=== PATIENT | male | born 1960 | race Caucasian/White ===

== ENCOUNTER 2021-06-27 00:33 | Day surgery (SDC) | payer OTHER, SELFPAY ==
[2021-06-13 11:25] VITALS: BMI 29.7
[2021-06-27 06:55] VITALS: BP 140/87; RESP 20; TEMP 35.9; O2SAT 99
[2021-06-27] MEDS: LACTATED RINGERS 1,000 ML 150 ML IV CONT (07:09)
--- NOTE | 2021-06-27 07:40 | P.PNAN_ITS ---
Anes - Initial Pre Proc Eval Procedure: Operation Date: 06/27/21 08:00 Proposed Procedures p Screening Colonoscopy - Jose Reese MD Date/Time: 06/27/21 07:40 Surgeon: Jose Reese MD Pre Op Diagnosis: neoplasm screening Patient Data Age: 61 Gender: M Height: 1.85 m Weight: 102.2 kg Last Vital Signs Temp 35.9 C L 06/27/21 06:55 Resp 20 06/27/21 06:55 BP 140/87 06/27/21 06:55 Pulse Ox 99 06/27/21 06:55 Allergies Allergy/AdvReac Type Severity Reaction Status Date / Time oxycodone Allergy Severe Hypotension Verified 06/27/21 07:11 ciprofloxacin Allergy Unknown Unknown Verified 06/27/21 06:52 Home Medications Medication Instructions Recorded Confirmed Type lisinopril 10 mg tablet See Rx Instructions .ROUTE 10/25/20 06/13/21 Rx .COMPLEX #90 tablet hntrgdwjptop-tshmufsh-cbhscx tablet 1 tablet PO DAILY 12/13/20 06/13/21 History Patient hx anesthesia problems: none Family hx anesthesia problems: none Results Review: All pre-operative results and documents have been reviewed as part of the pre-operative evaluation. [facility] Past Medical History Medical History (Updated 06/27/21 @ 07:40 by Keith Eddy MD) Essential (primary) hypertension Globus sensation Obesity (BMI 30.0-34.9) Surgical History Surgical History History of right hip replacement 2016 Family History Family History Mother Family history of thyroid disease Family history of Alzheimer's disease Father Family history of lung cancer Social History Social History Smoking status: Never smoker Alcohol intake: current Drinks per week: 2 Alcohol use details: wine Living arrangements: with family Gender identity (if verbalized by the patient): Male Sexual Orientation (if Verbalized by the Patient): Straight or Heterosexual Spiritual care concerns: No Anes - Eval Final PreProcedure Day of Procedure 06/27/21 07:40 Patient weight: overweight Heart: regular rate and rhythm Lungs: clear to auscultation Airway: Mallampati scale class II Neurological: alert and oriented Last oral intake: >/= 8 hours ASA classification: II Emergent: no Anesthetic plan: proceed Anesthesia type and monitoring: general GIVS and standard monitoring Results Review: All pre-operative results and documents have been reviewed as part of the pre-operative evaluation. Informed Consent: The patient's anesthetic plan and its attendant risks and benefits were discussed with the patient/family/POA. Questions were solicited and answers provided to the satisfaction of the patient/family/POA.
--- NOTE | 2021-06-27 08:01 | WPDGICN ---
Assessment and Plan Assessment and plan (1) Colon cancer screening: Code(s): Z12.11 - Encounter for screening for malignant neoplasm of colon Status: Acute Assessment and Plan: Patient presents for screening colonoscopy. Appears to be at average risk for colon polyps. Further recommendations will be given after endoscopy. GI Consult Note Consult date/time: 06/27/21 08:01 HPI: Hernesto Moran is a 61 year old male Presents for screening colonoscopy. It has been 10 years since last exam. Patient reports his current weight appetite bowel movements are normal. He denies abdominal pain. He has had no bleeding. Family history is noncontributory. Review of Systems Review of Systems: All systems reviewed & are unremarkable except as noted in HPI and below PMFSH Past Medical History Medical History (Updated 06/27/21 @ 07:40 by Keith Eddy MD) Essential (primary) hypertension Globus sensation Obesity (BMI 30.0-34.9) Surgical History Surgical History History of right hip replacement 2015 Family History Family History Mother Family history of thyroid disease Family history of Alzheimer's disease Father Family history of lung cancer Social History Social History Smoking status: Never smoker Alcohol intake: current Drinks per week: 2 Alcohol use details: wine Living arrangements: with family Gender identity (if verbalized by the patient): Male Sexual Orientation (if Verbalized by the Patient): Straight or Heterosexual Spiritual care concerns: No Meds Home Medications and Allergies Home Medications Medication Instructions Recorded Confirmed Type lisinopril 10 mg tablet See Rx Instructions .ROUTE 10/25/20 06/13/21 Rx .COMPLEX #90 tablet iocswtzkzffa-wuqqqddi-roibci tablet 1 tablet PO DAILY 12/13/20 06/13/21 History Allergies Allergy/AdvReac Type Severity Reaction Status Date / Time oxycodone Allergy Severe Hypotension Verified 06/27/21 07:11 ciprofloxacin Allergy Unknown Unknown Verified 06/27/21 06:52 Vital Signs Vital Signs - 24 hr 06/27/21 06:55 Temperature 96.7 F L Respiratory Rate 20 Blood Pressure 140/87 Pulse Oximetry 99 Exam Narrative: Physical exam reveals patient to be alert. Vital signs stable. HEENT exam is unremarkable. Patient is anicteric. Lungs are clear to auscultation and percussion. Heart is without murmur or extra sounds. Abdominal exam bowel sounds are present soft nontender with no hepatosplenomegaly. Digital external rectal exam is normal.
[2021-06-27 08:24] VITALS: BP 116/82; PULSE 68; RESP 18; O2SAT 97
[2021-06-27 08:34] VITALS: BP 125/81; PULSE 62; RESP 17; O2SAT 100
[2021-06-27 08:44] VITALS: BP 108/74; PULSE 70; RESP 26; O2SAT 100
== END 2021-06-27 08:49 | disposition home or self-care (01) ==
PROVIDERS: PCP Family Medicine; Visit Provider Internal Medicine Gastroenterology
PROC: 0DJD8ZZ Inspection of Lower Intestinal Tract, Via Natural or Artificial Opening Endoscopic (ICD-10-PCS; CPT 45378; principal; 2021-06-27 08:00)
DX: Z12.11 Encounter for screening for malignant neoplasm of colon (principal); K64.8 Other hemorrhoids; I10 Essential (primary) hypertension
CPT/HCPCS: 45378; J2704; J7120

== ENCOUNTER 2022-02-24 12:28 | Outpatient (CLI) | payer OTHER, SELFPAY ==
--- NOTE | 2022-02-24 14:48 | ECG_ITS ---
Measurements Intervals [place] Rate: 66 P: 46 [place]: 160 QRS: 78 QRSD: 113 T: 43 QT: 394 QTc: 413 Interpretive Statements SINUS RHYTHM MODERATE INTRAVENTRICULAR CONDUCTION DELAY [110+ ms QRS DURATION] NO PREVIOUS ECG AVAILABLE FOR COMPARISON ABNORMAL EKG Electronically Signed On 02-25-2022 13:41:48 CDT by Harrison Crews M.D.
== END 2022-02-24 12:29 | disposition home or self-care (01) ==
PROVIDERS: PCP Family Medicine; Visit Provider Surgery
DX: K40.90 Unilateral inguinal hernia, without obstruction or gangrene, not specified as recurrent (principal); I10 Essential (primary) hypertension; Z01.818 Encounter for other preprocedural examination; I45.9 Conduction disorder, unspecified
CPT/HCPCS: 36415; 86850; 86900; 86901; 93005

== ENCOUNTER 2022-03-01 01:16 | Day surgery (SDC) | payer OTHER, SELFPAY ==
[2022-02-22 14:37] VITALS: BMI 27.7
--- NOTE | 2022-02-22 14:45 | PC.NURSE ---
Report to the Outpatient Waiting Room, entrance under the green pavilion located off [facility], at time 8:00 on date 03/01/22. OR Time: 10:00. - You and your visitor will be asked a series of questions to screen for COVID 19 for your protection. - Only one visitor is allowed at this time. - The patient visitor is requested to leave or wait in car when not with patient. - A mask is required within the hospital. Patients may have clear liquids (water, carbonated beverages, clear teas, apple juice) until 3 hours prior to surgery (7:00) with a maximum of 20 ounces. - No food from midnight until time of surgery Take the following medications with a SIP of water the morning of surgery: NONE Medications to discontinue per physician: VITAMINS Date to take last dose: 02/25/22 Please no make-up, nail upper sorbian, hairspray, perfume, deodorant, or body powder the day of surgery. No jewelry (including any body piercings) or valuables the day of surgery, leave them at home. Please take a shower or bath the night before, or the morning of, surgery with an antibacterial soap. Wear comfortable, loose fitting clothing. HIBICLENS SHOWER - Jewelry must be removed prior to entering the operating room. Rings and piercings that are not removed may be cut off. - The hospital will not accept responsibility for valuables. - Please leave all valuables, including medications, at home the day of surgery. If you are going home after surgery, a licensed bus van driver must drive you home. - NO public transportation without another adult. - We recommend that an adult stay with you for 24 hours following discharge. - We also recommend that you do not drive, make important decision, drink alcoholic beverages, or take any drugs that were not prescribed by your health care provider for at least 24 hours after your discharge time. Follow any additional instructions given to you from your surgeon. If you or anyone in your household have experienced Covid symptoms in the past week, please notify your surgeon or the nurse liaison at the phone number below for possible testing. Telephone instructions given to PT - [address] and asked if any additional questions and then verbalized understanding. Patient advised to call surgeon office or pre surgery nurse liaison [phone] if any additional questions.
--- NOTE | 2022-02-28 09:45 | P.PNAN_ITS ---
Anes - Initial Pre Proc Eval Procedure: Operation Date: 03/01/22 10:00 Proposed Procedures p Laparoscopic Left Inguinal Hernia Repair with Mesh, DaVinci Assisted - Silver Vega DO Date/Time: 02/28/22 09:45 Surgeon: Silver Vega DO Pre Op Diagnosis: Lt Ing Hernia Patient Data Age: 61 Gender: M Height: 1.85 m Weight: 95.25 kg Allergies Allergy/AdvReac Type Severity Reaction Status Date / Time oxycodone Allergy Severe Hypotension Verified 03/01/22 08:17 ciprofloxacin Allergy Unknown Other Verified 03/01/22 08:17 Home Medications Medication Instructions Recorded Confirmed Type dyojkjycvdhh-atsalsda-vbropi tablet 1 tablet PO DAILY 12/13/20 03/01/22 History lisinopril 10 mg tablet See Rx Instructions .Route 11/10/21 03/01/22 Rx .COMPLEX #90 tabs ibuprofen 800 mg tablet 800 mg PO Q8H PRN pain #15 tabs 03/01/22 Rx Patient hx anesthesia problems: none Family hx anesthesia problems: none Results Review: All pre-operative results and documents have been reviewed as part of the pre- operative evaluation. [facility] Past Medical History Medical History Basal cell carcinoma of skin Basal cell carcinoma, face Essential (primary) hypertension Globus sensation Obesity (BMI 30.0-34.9) Surgical History Surgical History History of right hip replacement 2015 Family History Family History Mother Family history of thyroid disease Family history of Alzheimer's disease Father , age 65 Family history of lung cancer Social History Social History Smoking status: Never smoker Alcohol intake: never Drinks per week: 2 Alcohol use details: wine Substance use: never Substance use type: does not use 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 Gender identity (if verbalized by the patient): Male Sexual Orientation (if Verbalized by the Patient): Straight or Heterosexual Spiritual care concerns: No Anes - Eval Final PreProcedure Day of Procedure 06/14/22 09:45 Patient weight: overweight Heart: regular rate and rhythm Lungs: clear to auscultation Airway: Mallampati scale class II Neurological: alert and oriented Last oral intake: >/= 8 hours ASA classification: II Emergent: no Anesthetic plan: proceed Anesthesia type and monitoring: general ETT and standard monitoring Results Review: All pre-operative results and documents have been reviewed as part of the pre- operative evaluation. Informed Consent: The patient's anesthetic plan and its attendant risks and benefits were discussed with the patient/family/POA. Questions were solicited and answers provided to the satisfaction of the patient/family/POA.
[2022-03-01] VITALS (13 sets, daily range): BP systolic 101–119; BP diastolic 69–83; PULSE 39–78; RESP 12–16; TEMP 36.4–36.8; O2SAT 100; BMI 26.2
[2022-03-01] MEDS: ACETAMINOPHEN 500 MG TABLET 1000 MG PO (09:10)
[2022-03-01] MEDS: LACTATED RINGERS 1,000 ML 30 ML IV CONT ×3 (09:13→13:41)
[2022-03-01] MEDS: KETOROLAC 15 MG/ML VIAL (*BKC) IV PUSH (09:14)
--- NOTE | 2022-03-01 09:22 | WPDHPUPDATE1 ---
History and Physical Update Update Date/Time: 03/01/22 09:22 History and Physical has been reviewed, including an updated exam of the patient. There are NO changes in the patient's condition. Risks, benefits, and alternatives have been discussed and questions answered. Patient agrees to proceed with procedure.
[2022-03-01] MEDS: ceFAZolin 2 GM/D5W 50 ML 2 GM/50 ML BAG IVPB (09:43)
--- NOTE | 2022-03-01 10:55 | W.PM.PROC2 ---
Procedure Note - Detailed Date of Procedure 03/01/22 Pre-op Diagnosis Left Inguinal Hernia Post-op Diagnosis Same (Indirect left inguinal hernia) Procedure Performed Laparoscopic left inguinal hernia repair with mesh, da Paul assisted Surgeon Silver Vega DO Anesthesia General and Local (0.5% bupivacaine with epinephrine) Indications This is a 61-year-old man who presented with left groin pain and a bulge that he noticed about 2 months ago. He was found to have a reducible left inguinal hernia on physical exam. There was no evidence of a right inguinal hernia on exam. Discussions were made with the patient about treatment options and decision was made to proceed with robotic assisted laparoscopic left inguinal hernia repair with mesh. Findings Laparoscopic left inguinal hernia repair was performed. Upon inspection laparoscopically, the patient was found to have a moderate-sized indirect left inguinal hernia. There was no evidence of right inguinal hernia. A robotic transabdominal preperitoneal approach was utilized. Once a wide enough preperitoneal pocket was created, a large left Bard 3DMax mid mesh was placed overlying the entire left myopectineal orifice. No specimens were obtained for pathology. Description of Procedure Procedure as well as risks, benefits, and alternatives were discussed with the patient. Written consent was obtained and placed in chart prior to procedure. Patient was brought back to surgical suite. He was placed supine on operating table. Time-out was done to confirm patient and procedure. He was then intubated by Anesthesia Department. His abdomen was prepped and draped in sterile fashion using chlorhexidine prep. 0.5% bupivacaine with epinephrine was infiltrated at each location for incision. An 8 mm incision was made in the left lateral abdomen, and a 5 mm Optiview trocar was advanced through the abdominal layers under direct visualization. Once inside the abdominal cavity, carbon dioxide insufflation was used to create a pneumoperitoneum. A camera was inserted and the abdominal cavity was inspected. The patient was placed in slight Trendelenburg position. An 8 millimeter incision was made on the right lateral abdomen and an 8 millimeter trocar was inserted under direct visualization. Another 8 millimeter incision was made just superior to the umbilicus and an 8 millimeter trocar was inserted under direct visualization. The 5 mm port was then removed and this was replaced with another 8 mm robotic port. The robotic arms were brought up to the patient's bedside and secured to the ports. The camera and instruments were inserted. I then moved over to the robotic console and took control of the camera and instruments. After careful inspection of the abdominal cavity, I began scoring the peritoneum along the left lower quadrant using scissors with electrocautery. The preperitoneal plane was entered and this was carefully dissected caudally along the inferior epigastric vessels. Careful dissection with scissors with electrocautery and blunt dissection was used to continue this dissection. I dissected far enough laterally to allow for mesh placement, and also dissected medially to identify the pubic arch and Rober's ligament. The hernia sac was identified and carefully dissected posteriorly. The cord contents were also identified and the peritoneum was carefully dissected far enough posteriorly to allow for mesh placement. Once an adequate pocket was created, I then placed the mesh within the preperitoneal pocket and carefully unfolded it. The mesh was centered on the hernia defect with adequate overlap circumferentially. The inferior edge of the mesh was inspected to ensure that it was far enough away from the peritoneal edge. The mesh appeared in proper position overlying the entire myopectineal orifice. The mesh was secured using 3-0 Vicryl simple interrupted sutures in Rober's ligament, the superior medial edge,
--- NOTE | 2022-03-01 11:54 | SUR.PHASEI ---
PT AWAKE AND ALERT. DENIES PAIN OR NAUSEA. RESTING QUIETLY
[2022-03-01] MEDS: ONDANSETRON INJ 4 MG/2 ML VIAL IV PUSH (12:46)
[2022-03-01] MEDS: HALOPERIDOL LACTATE 5 MG/ML VIAL 1 MG IV PUSH (13:35)
[2022-03-01] MEDS: SCOPOLAMINE 1.5 MG PATCH TRANSDERM (13:36)
--- NOTE | 2022-03-01 14:30 | SUR.PHASEII ---
pt had two episodes of vomiting after the scop patch and haldol. this nurse called dr souza and he verbal ordered Benadryl 25 mg.
[2022-03-01] MEDS: diphenhydrAMINE HCl INJ 50 MG/ML VIAL 25 MG IV PUSH (14:40)
== END 2022-03-01 15:39 | disposition home or self-care (01) ==
PROVIDERS: PCP Family Medicine; Visit Provider Surgery
PROC: 8E0Y4CZ Robotic Assisted Procedure of Lower Extremity, Percutaneous Endoscopic Approach (ICD-10-PCS; CPT 49650; principal; 2022-03-01 10:00)
DX: K40.90 Unilateral inguinal hernia, without obstruction or gangrene, not specified as recurrent (principal); I10 Essential (primary) hypertension
CPT/HCPCS: 49650; S2900; 36415; 86850; 86900; 86901; 93005; A9270; C1781; J0690; J1100; J1170; J1200; J1630; J1885; J2250; J2405; J2704; J2710; J7120

== ENCOUNTER 2022-12-16 23:38 | Emergency (ER) | payer OTHER, SELFPAY ==
--- NOTE | ~2022-12-16 | CT_ITS ---
EXAMINATION: CT abdomen pelvis wo con DATE: 12/17/2022 01:35 INDICATION: Hematuria. Left flank pain. Nausea and vomiting. TECHNIQUE: Computed tomography (CT) of the abdomen and pelvis was performed without intravenous contr ast. Automated exposure control and iterative reconstruction technique were employed. The dose-length product was 938.19 mGy-cm. COMPARISON: CT abdomen and pelvis 03/23/2015 FINDINGS: The visualized portions of lung bases demonstrate mild atelectasis. There is a 3 mm nodule in right lower lobe, likely benign. There is mild scarring in paraspinal right lower lobe. No pleural effusion. The heart size is normal. No pericardial effusion. The liver, gallbladder, spleen, pancrea s, and adrenal glands are normal. There is a 3 mm stone in right kidney. There is a peripelvic cysts in left kidney measuring up to 2.6 cm. There is mild left hydronephrosis and hydroureter. There is a 5 mm stone in proximal left ureter. There is a left inguinal hernia containing fat. There are no dila tommie loops of bowel. The appendix is not visualized. There are no pathologically enlarged lymph nodes. There is no free intraperitoneal fluid. There is a total right hip arthroplasty. There is osteonecro sis of left femoral head. There is mild lumbar spondylosis. IMPRESSION: 1. 5 mm stone in proximal left ureter with mild left hydronephrosis and proximal hydroureter. 2. 3 mm nonobstructing right kidney stone. Reviewed, dictated and finalized at location A. IMPRESSION: 1. 5 mm stone in proximal left ureter with mild left hydronephrosis and proxima l hydroureter. 2. 3 mm nonobstructing right kidney stone.
[2022-12-16 23:47] VITALS: BP 127/79; PULSE 55; RESP 20; TEMP 36.2; O2SAT 97
[2022-12-16 23:53] LABS: Basophils Absolute Auto 0.1 K/mm3 (0.0-0.1); Basophils Percent Auto 0.8 % (0.2-1.2); Eosinophils Absolute Auto 0.7 K/mm3 (0-0.3); Eosinophils Percent Auto 7.6 % (0-4.4); Hematocrit 45.8 % (42.0-52.0); Immature Granulocyte Absolute 0.02 K/mm3 (0.00-0.031); Immature Granulocyte Percent A 0.2 % (0-0.5); Lymphocytes Absolute Auto 3.12 K/mm3 (0.9-3.2); Lymphocytes Percent Auto 35.5 % (18.3-44.2); Mean Corpuscular HGB Conc 32.8 g/dl (32-36); Mean Corpuscular Hemoglobin 32.2 pg (26-34); Mean Corpuscular Volume 98.3 fl (80-100); Mean Platelet Volume 9.3 fl (7.4-10.4); Monocytes Absolute Auto 0.6 K/mm3 (0.1-0.6); Monocytes Percent Auto 7.3 % (2.6-8.5); Neutrophils Absolute Auto 4.3 K/mm3 (1.3-6.7); Neutrophils Percent Auto 48.6 % (45.5-73.1); Platelet Count Result 183 k/mm3 (150-375); Red Blood Count 4.66 M/mm3 (4.6-6.20); Red Cell Distribution Width 13.2 % (11.5-14.5); White Blood Count 8.8 K/mm3 (4.5-10.0)
[2022-12-17] VITALS (8 sets, daily range): BP systolic 113–131; BP diastolic 76–87; PULSE 54–61; RESP 12–15; TEMP 36.8; O2SAT 96–99
[2022-12-17 00:05] LABS: Alanine Aminotransferase 27 U/L (6-50); Albumin Level 4.5 g/dL (3.5-5.1); Alkaline Phosphatase 58 U/L (38-126); Anion Gap 5 mmol/L (8-16); Aspartate Amino Transferase 29 U/L (17-59); Bilirubin,Total 0.4 mg/dL (0.2-1.3); Blood Urea Nitrogen 27 mg/dL (9-20); Calcium 9.3 mg/dL (8.4-10.2); Carbon Dioxide 32 mmol/L (22-30); Chloride 102 mmol/L (98-107); Estimated CRCL calculation 60 ml/min; Estimated Glomerular Filt Rate 56; Glucose 146 mg/dL (65-110); Sodium 139 mmol/L (137-145)
[2022-12-17 00:20] LABS: Appearance Urine Clear (Clear); Bacteria Urine None Seen /hpf; Bilirubin Urine Negative (Negative); Blood Urine 3+ (Negative); Color Urine Yellow (Yellow); Glucose Urine UA Negative (Negative); Ketones Urine Trace mg/dL (Negative); Leukocyte Esterase Ur Negative LEU/UL (Negative); Nitrate Urine Negative (Negative); Non Pathogenic Casts 0-2; Protein Urine Negative (Negative); RBC Urine 21-50 /hpf (0-2); Specific Grav Ur 1.022 (1.001-1.035); Squamous Epithelial Cell Urine None seen /hpf (Few); Urobilinogen Urine 0.2 mg/dL (<2.0); WBC Urine 0-5 /hpf; pH Urine 5.5 (5.0-9.0)
[2022-12-17 00:58] LABS: Add Urine Microscopic? YES
[2022-12-17] MEDS: fentaNYL CITRATE INJ (*CRX) 100 MCG/2 ML VIAL 50 MCG IV PUSH ×2 (01:19→02:49)
[2022-12-17] MEDS: ONDANSETRON INJ 4 MG/2 ML VIAL IV PUSH (01:19)
--- NOTE | 2022-12-17 01:27 | ED.GENADULT ---
HPI - General Adult General Chief complaint: Urogenital-Male Stated complaint: kidney stone Time Seen by Provider: 12/16/22 23:50 History of Present Illness HPI narrative: 62-year-old male presented to the emergency department for evaluation of left flank pain with associated vomiting. Patient states over the last week he has had some intermittent left-sided lower back pain. Patient reports the pain began to worsen last night and then acutely worsened just prior to arrival. Patient did have episode of emesis with this. Patient does have a prior history of kidney stones and had had prior follow-up with urology. Patient's most recent kidney stone was approximately 4 years ago. Patient did make some dietary changes. Patient states he has never had to have lithotripsy to remove the stones and has passed the stones on his own. Patient denies any chest pain shortness of breath or fevers. Related Data Home Medications Medication Instructions Recorded Confirmed fgczkfsmtvyt-knavjgfe-npkazy tablet 1 tablet PO DAILY 12/13/20 03/14/22 Allergies Allergy/AdvReac Type Severity Reaction Status Date / Time ciprofloxacin Allergy Unknown Other Verified 10/02/22 10:34 hydrocodone AdvReac Intermediate Hypotension Verified 12/21/22 16:04 Review of Systems Review of Systems: All systems reviewed & are unremarkable except as noted in HPI and below PMFSH Past Medical History Medical History Basal cell carcinoma of skin Basal cell carcinoma, face Essential (primary) hypertension Globus sensation Obesity (BMI 30.0-34.9) Surgical History Surgical History H/O left inguinal hernia repair History of right hip replacement 2015 Family History Family History Mother Family history of thyroid disease Family history of Alzheimer's disease Father , age 65 Family history of lung cancer Social History Social History (Updated 10/02/22 @ 10:35 by Cheri Rawls MA) Smoking status: Never smoker Alcohol intake: never Drinks per week: 2 Alcohol use details: wine Substance use: never Substance use type: does not use Lack of Transportation: No Lack of Food: Never True Current Housing: I Have Housing Concerned About Future Housing: No Difficulty Paying Gas/Electric Bills: No Difficulty Paying for Meds: No Currently Unemployed: No Education: Master's Degree or Higher Difficulty w/ Childcare or Family Care: No Living arrangements: with family Occupation/Education: retired 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 EYES: PERRLA/EOMI, conjunctivae clear. NOSE: Normal no drainage NECK: Supple. No adenopathy, no masses. RESPIRATORY: Airway patent, respirations nonlabored. Clear to auscultation bilaterally, no rales, rhonchi, wheezing. CARDIOVASCULAR: Regular rate and rhythm without murmurs rubs or gallops. ABDOMINAL: Soft, nontender, nondistended, normal bowel sounds MUSCULOSKELETAL: Moves all extremities. Strength/ROM intact, No edema, No calf tenderness. NEURO: Alert. Cranial nerves II through XII intact. Grossly intact SKIN: Warm, dry. Normal Color Course Course Emergency Course: 62-year-old male presenting to the ED for evaluation of left flank pain. Patient did have hematuria on his UA with no evidence of an infection. CT scan was ordered to evaluate for ureteral calculi. I did show a kidney stone. Patient and family were updated on the pulmonary results of the scan. Patient is resting comfortably. Awaiting read by radiolog
[2022-12-17] MEDS: TAMSULOSIN HCL 0.4 MG CAPSULE PO (02:12)
[2022-12-17] MEDS: KETOROLAC 15 MG/ML VIAL (*BKC) IV PUSH (06:23)
== END 2022-12-17 06:31 | disposition home or self-care (01) ==
PROVIDERS: Emergency Provider Emergency Medicine; PCP Family Medicine
DX: N20.1 Calculus of ureter (principal); I10 Essential (primary) hypertension; Z85.828 Personal history of other malignant neoplasm of skin
CPT/HCPCS: 36415; 74176; 80053; 81001; 85025; 96374; 96375; 96376; 99284; A9270; J1885; J2405; J3010

== ENCOUNTER 2022-12-20 09:21 | Emergency (ER) | payer OTHER, SELFPAY ==
--- NOTE | ~2022-12-20 | XR_ITS ---
EXAMINATION: XR abdomen/kub 1V DATE: 12/20/2022 10:06 INDICATION: Left ureteral stone. TECHNIQUE: A supine view of the abdomen on 2 radiographs was obtained. COMPARISON: CT abdomen and pelvis 12/20/2022 FINDINGS: There are no dilated loops of bowel. There is a total right hip arthroplasty in near-anatom ic alignment. IMPRESSION: 1. No visible urolithiasis. Reviewed, dictated and finalized at location A. IMPRESSION: 1. No visible urolithiasis.
--- NOTE | ~2022-12-20 | CT_ITS ---
EXAMINATION: CT abdomen pelvis wo con DATE: 12/20/2022 09:47 INDICATION: Left ureteral stone. TECHNIQUE: Computed tomography (CT) of the abdomen and pelvis was performed without intravenous contr ast. Automated exposure control and iterative reconstruction technique were employed. The dose-length product was 300.85 mGy-cm. COMPARISON: CT abdomen and pelvis 12/17/2022 FINDINGS: The visualized portions of the lung bases demonstrate mild atelectasis. There is mild scarr ing in paraspinal right lower lobe. No pleural effusion. The heart size is normal. No pericardial eff usion. The liver, gallbladder, spleen, pancreas, and adrenal glands are normal. There is a 2 mm stone in right kidney. There is a 1 mm stone in left kidney. There are peripelvic cysts in left kidney missael suring up to 3.5 cm. There is mild left hydronephrosis and hydroureter. There is a 5 mm stone in dist al left ureter. The prostate is mildly enlarged. There is a left inguinal hernia containing fat. Ther e are no dilated loops of bowel. The appendix is normal. There are no pathologically enlarged lymph n odes. There is no free intraperitoneal fluid. There is a total right hip arthroplasty. There is mild thoracic and lumbar spondylosis. IMPRESSION: 1. 5 mm stone in distal left ureter with mild left hydronephrosis and proximal hydroureter. 2. Small bilateral nonobstructing kidney stones. Reviewed, dictated and finalized at location A.
[2022-12-20 09:30] VITALS: O2SAT 99
[2022-12-20 09:32] VITALS: BP 141/94; PULSE 60; RESP 126; TEMP 36.8; O2SAT 100
--- NOTE | 2022-12-20 09:33 | ED.MALEGU ---
HPI - Male Genitourinary General Chief complaint: Urogenital-Male Stated complaint: kidney stone Time Seen by Provider: 12/20/22 09:27 History of Present Illness HPI Narrative: Pt presents with worsening left flank pain this morning. Pt diagnosed with 5 mm kidney stone 3 days ago. Pt on tramadol, flomax and zofran but pain is getting worse. Pt denies fever, dysuria or frequency. Pt has history of kidney stones in past and says morphine has worked well for pain with others. Related Data Home Medications Medication Instructions Recorded Confirmed jjijzhqrkuql-kripegxb-qegktt tablet 1 tablet PO DAILY 12/13/20 03/14/22 Allergies Allergy/AdvReac Type Severity Reaction Status Date / Time oxycodone Allergy Severe Hypotension Verified 10/02/22 10:34 ciprofloxacin Allergy Unknown Other Verified 10/02/22 10:34 Review of Systems Review of Systems: All systems reviewed & are unremarkable except as noted in HPI and below PMFSH Past Medical History Medical History Basal cell carcinoma of skin Basal cell carcinoma, face Essential (primary) hypertension Globus sensation Obesity (BMI 30.0-34.9) Surgical History Surgical History H/O left inguinal hernia repair History of right hip replacement 2015 Family History Family History Mother Family history of thyroid disease Family history of Alzheimer's disease Father , age 65 Family history of lung cancer Social History Social History (Updated 10/02/22 @ 10:35 by Cheri Rawls MA) Smoking status: Never smoker Alcohol intake: never Drinks per week: 2 Alcohol use details: wine Substance use: never Substance use type: does not use Lack of Transportation: No Lack of Food: Never True Current Housing: I Have Housing Concerned About Future Housing: No Difficulty Paying Gas/Electric Bills: No Difficulty Paying for Meds: No Currently Unemployed: No Education: Master's Degree or Higher Difficulty w/ Childcare or Family Care: No Living arrangements: with family Occupation/Education: retired 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 Gender identity (if verbalized by the patient): Male Sexual Orientation (if Verbalized by the Patient): Straight or Heterosexual Spiritual care concerns: No Exam Const: General: healthy appearing Nutritional Appearance: well nourished Limitations: no limitations Resp: Effort & Inspection: normal respiratory effort Auscultation: clear to auscultation bilaterally Cardio: Rate: regular rate Rhythm: regular rhythm GI: GI Palp: Yes Soft to palpation and Yes Tenderness to palpation present (GI) (left flank) Auscultation: normal bowel sounds : General: Yes CVA tenderness Back/Spine/Pelvis: Back: CVA tenderness Skin: General skin exam: normal color Wounds: no wounds Neuro: General: patient oriented x3, moves all extremities, no meningeal signs and no focal motor deficits Speech: normal speech Extrem: General: normal to inspection and no clubbing, cyanosis or edema Psych: Mental Status: mental status grossly normal Affect: normal affect Attitude: cooperative Course Vital Signs Vital signs: Vital Signs Pulse Oximetry 99 12/20/22 09:30 Temperature 98.3 F 12/20/22 09:32 Pulse Rate 57 L 12/20/22 10:43 Respiratory Rate 14 12/20/22 10:43 Blood Pressure 128/86 12/20/22 10:43 Pulse Oximetry 99 12/20/22 10:43 MDM - Male Genitourinary MDM Narrative Medical decision making narrative: 62 y/o male with diagnosed 5 mm left proximal ureteral stone presents with worsening pain not relieved with ultram. Will have to repeat CT and give pain meds to give him some relief. Pt has pain relief with morphine, stone is now distal ureter. should be able to send home on differ
[2022-12-20] MEDS: MORPHINE SULFATE (*CRX) 4 MG/ML INJ IV PUSH (09:40)
[2022-12-20 09:44] LABS: Basophils Percent Auto 0.4 % (0.2-1.2); Eosinophils Absolute Auto 0.2 K/mm3 (0-0.3); Eosinophils Percent Auto 1.6 % (0-4.4); Hematocrit 46.3 % (42.0-52.0); Hemoglobin 15.5 g/dL (14.0-18.0); Immature Granulocyte Absolute 0.05 K/mm3 (0.00-0.031); Immature Granulocyte Percent A 0.5 % (0-0.5); Lymphocytes Absolute Auto 1.39 K/mm3 (0.9-3.2); Lymphocytes Percent Auto 12.6 % (18.3-44.2); Mean Corpuscular HGB Conc 33.5 g/dl (32-36); Mean Corpuscular Hemoglobin 32.8 pg (26-34); Mean Corpuscular Volume 97.9 fl (80-100); Mean Platelet Volume 9.1 fl (7.4-10.4); Monocytes Absolute Auto 0.6 K/mm3 (0.1-0.6); Monocytes Percent Auto 5.1 % (2.6-8.5); Neutrophils Absolute Auto 8.8 K/mm3 (1.3-6.7); Neutrophils Percent Auto 79.8 % (45.5-73.1); Platelet Count Result 167 k/mm3 (150-375); Red Blood Count 4.73 M/mm3 (4.6-6.20); Red Cell Distribution Width 13.1 % (11.5-14.5); White Blood Count 11.1 K/mm3 (4.5-10.0)
[2022-12-20 09:56] LABS: Alanine Aminotransferase 22 U/L (6-50); Albumin Level 4.4 g/dL (3.5-5.1); Alkaline Phosphatase 62 U/L (38-126); Anion Gap 8 mmol/L (8-16); Aspartate Amino Transferase 23 U/L (17-59); Bilirubin,Total 0.7 mg/dL (0.2-1.3); Blood Urea Nitrogen 22 mg/dL (9-20); Carbon Dioxide 28 mmol/L (22-30); Chloride 102 mmol/L (98-107); Estimated CRCL calculation 59 ml/min; Estimated Glomerular Filt Rate > 60; Glucose 123 mg/dL (65-110); Potassium 4.3 mmol/L (3.4-5.0); Sodium 138 mmol/L (137-145)
[2022-12-20 10:43] VITALS: BP 128/86; PULSE 57; RESP 14; O2SAT 99
== END 2022-12-20 10:43 | disposition home or self-care (01) ==
PROVIDERS: Emergency Provider Emergency Medicine; PCP Family Medicine
DX: N13.2 Hydronephrosis with renal and ureteral calculous obstruction (principal); I10 Essential (primary) hypertension; Z87.442 Personal history of urinary calculi; Z85.828 Personal history of other malignant neoplasm of skin; E66.9 Obesity, unspecified; Z68.29 Body mass index [BMI] 29.0-29.9, adult; Z96.641 Presence of right artificial hip joint
CPT/HCPCS: 36415; 74018; 74176; 80053; 85025; 96374; 99284; J2270

== ENCOUNTER → 2023-01-26 08:25 | Outpatient (CLI) | payer OTHER, SELFPAY ==
--- NOTE | ~2023-01-26 | US_ITS ---
Renal-Bladder ultrasound Clinical History: Left ureteral stone Technique: Real-time sonographic imaging of the kidneys and urinary bladder was performed. Findings: The right kidney measures 10.2 cm in length and the left kidney measures 10.3 cm. There is mild left hydronephrosis. No right hydronephrosis. Renal cortical echogenicity is within normal limit s. No renal mass lesion is identified. The urinary bladder is moderately distended at the time of this exam. No intraluminal echoes are iden tified. No abnormal wall thickening is seen. Impression: Mild left hydronephrosis. Reviewed, dictated and finalized at location M. Impression: Mild left hydronephrosis.
== END ==
PROVIDERS: PCP Family Medicine; Visit Provider Urology
DX: N20.1 Calculus of ureter (principal)
CPT/HCPCS: 76770

== ENCOUNTER 2023-01-29 16:25 | Emergency (ER) | payer OTHER, SELFPAY ==
--- NOTE | ~2023-01-29 | CT_ITS ---
EXAMINATION: CT abdomen pelvis wo con DATE: 01/29/2023 18:28 INDICATION: Left flank pain TECHNIQUE: Computed tomography (CT) of the abdomen and pelvis was performed without intravenous contr ast. Automated exposure control and iterative reconstruction technique were employed. The dose-length product was 707.29 mGy-cm. COMPARISON: 12/20/2022 FINDINGS: There are multiple small pulmonary nodules noted throughout the bilateral lower lungs largest measuri ng 6 mm in the superior segment of the right lower lobe which are all unchanged since chest CT dated 03/13/2016, likely sequela of old granulomatous disease. Heart size is normal. No pericardial or pleur al effusion. Small sliding-type hiatal hernia. Liver, gallbladder, spleen, pancreas and bilateral adr enal glands are normal. Nonobstructing 2 mm stone at an upper pole calyx of the right kidney. There i s mild left hydroureteronephrosis with some periureteral stranding extending caudally to a 5 mm stone in the distal left ureter which appears unchanged since the prior study. There is an additional 1 mm stone in a middle calyx of the left kidney. Bowels including the appendix are normal. Bladder is nor mal. Mild prostatomegaly. Small fat-containing left inguinal hernia. Right total hip arthroplasty. Mi ld thoracolumbar dextrocurvature with mild spondylosis. IMPRESSION: 1. Bilateral nephrolithiasis with unchanged 5 mm stone in the distal left ureter with mild left hydro ureteronephrosis. Relatively with urinalysis to exclude associated ascending urinary tract infection. Reviewed, dictated and finalized at location A. IMPRESSION: 1. Bilateral nephrolithiasis with unchanged 5 mm stone in the distal left urete r with mild left hydroureteronephrosis. Relatively with urinalysis to exclude a ssociated ascending urinary tract infection.
[2023-01-29 17:08] VITALS: BP 144/84; PULSE 70; RESP 22; TEMP 36.5; O2SAT 100
[2023-01-29 17:57] LABS: Basophils Percent Auto 0.4 % (0.2-1.2); Eosinophils Absolute Auto 0.3 K/mm3 (0-0.3); Eosinophils Percent Auto 3.7 % (0-4.4); Hematocrit 42.4 % (42.0-52.0); Hemoglobin 14.3 g/dL (14.0-18.0); Immature Granulocyte Absolute 0.03 K/mm3 (0.00-0.031); Immature Granulocyte Percent A 0.3 % (0-0.5); Lymphocytes Absolute Auto 1.34 K/mm3 (0.9-3.2); Lymphocytes Percent Auto 14.4 % (18.3-44.2); Mean Corpuscular HGB Conc 33.7 g/dl (32-36); Mean Corpuscular Hemoglobin 32.2 pg (26-34); Mean Corpuscular Volume 95.5 fl (80-100); Monocytes Absolute Auto 0.6 K/mm3 (0.1-0.6); Monocytes Percent Auto 6.8 % (2.6-8.5); Neutrophils Absolute Auto 6.9 K/mm3 (1.3-6.7); Neutrophils Percent Auto 74.4 % (45.5-73.1); Platelet Count Result 185 k/mm3 (150-375); Red Blood Count 4.44 M/mm3 (4.6-6.20); Red Cell Distribution Width 13.1 % (11.5-14.5); White Blood Count 9.3 K/mm3 (4.5-10.0)
[2023-01-29] MEDS: MORPHINE SULFATE (*CRX) 4 MG/ML INJ IV PUSH (18:01)
[2023-01-29] MEDS: ONDANSETRON INJ 4 MG/2 ML VIAL IV PUSH (18:01)
[2023-01-29] MEDS: SODIUM CHLORIDE 0.9% IV 1,000 ML 999 ML IV CONT (18:01)
[2023-01-29 18:11] LABS: Alanine Aminotransferase 24 U/L (6-50); Albumin Level 4.3 g/dL (3.5-5.1); Alkaline Phosphatase 53 U/L (38-126); Anion Gap 6 mmol/L (8-16); Aspartate Amino Transferase 33 U/L (17-59); Bilirubin,Total 0.5 mg/dL (0.2-1.3); Blood Urea Nitrogen 23 mg/dL (9-20); Calcium 9.2 mg/dL (8.4-10.2); Carbon Dioxide 28 mmol/L (22-30); Chloride 104 mmol/L (98-107); Estimated CRCL calculation 64 ml/min; Estimated Glomerular Filt Rate > 60; Glucose 165 mg/dL (65-110); Potassium 4.7 mmol/L (3.4-5.0); Sodium 138 mmol/L (137-145)
[2023-01-29] MEDS: KETOROLAC 30 MG/ML VIAL (*BKC) IV PUSH (18:30)
--- NOTE | 2023-01-29 18:30 | ED.GENADULT ---
HPI - General Adult General Chief complaint: Urogenital-Male Stated complaint: kidney stone Time Seen by Provider: 01/29/23 17:29 History of Present Illness HPI narrative: Patient is a 62-year-old male who presents ER with left-sided kidney stone. Was seen in early December and was diagnosed with ureterolithiasis. He does not feel as though he has passed it. He has had some decreased pain over the last few weeks but it returned today. He had an outpatient ultrasound that showed persistent hydronephrosis on the left side was recommended to come to the ER to get a CT scan for further evaluation. No fevers or chills or sweats. No hematuria or dysuria. Related Data Home Medications Medication Instructions Recorded Confirmed bgasonadnocp-xtgibujs-yjwqhr tablet 1 tablet PO DAILY 12/13/20 03/14/22 Allergies Allergy/AdvReac Type Severity Reaction Status Date / Time ciprofloxacin Allergy Unknown Other Verified 10/02/22 10:34 hydrocodone AdvReac Intermediate Hypotension Verified 12/21/22 16:04 Review of Systems Review of Systems: All systems reviewed & are unremarkable except as noted in HPI and below Constitutional: Constitutional: Denies chills, Denies fatigue and Denies fever(s) ENT: Denies nasal congestion and Denies sore throat Cardiovascular: Cardiovascular: Denies chest pain and Denies radiating jaw, neck or arm pain Gastrointestinal: Gastrointestinal: Reports abdominal pain, Reports nausea and Denies vomiting PMFSH Past Medical History Medical History Basal cell carcinoma of skin Basal cell carcinoma, face Essential (primary) hypertension Globus sensation Obesity (BMI 30.0-34.9) Surgical History Surgical History H/O left inguinal hernia repair History of right hip replacement 2015 Family History Family History Mother Family history of thyroid disease Family history of Alzheimer's disease Father , age 65 Family history of lung cancer Social History Social History (Updated 10/02/22 @ 10:35 by Cheri Rawls MA) Smoking status: Never smoker Alcohol intake: never Drinks per week: 2 Alcohol use details: wine Substance use: never Substance use type: does not use Lack of Transportation: No Lack of Food: Never True Current Housing: I Have Housing Concerned About Future Housing: No Difficulty Paying Gas/Electric Bills: No Difficulty Paying for Meds: No Currently Unemployed: No Education: Master's Degree or Higher Difficulty w/ Childcare or Family Care: No Living arrangements: with family Occupation/Education: retired Additional occupation/education comments: [employer] Gender identity (if verbalized by the patient): Male Sexual Orientation (if Verbalized by the Patient): Straight or Heterosexual Spiritual care concerns: No Exam Narrative: GENERAL: Well-appearing, well-nourished, and in no acute distress. HEAD: Normocephalic, atraumatic. EYES: PERRL and EOMI. ENT: Mucous membranes moist. CHEST: Clear to auscultation. No respiratory distress. HEART: Regular rate and rhythm. Normal peripheral pulses. ABDOMEN: Soft, nontender, nondistended. EXTREMITIES: Normal range of motion. No edema. SKIN: Warm, dry, no rash. NEURO: Alert and oriented x3. PSYCH: Normal mood and affect. Course Course Emergency Course: Patient resting comfortably. Discussed case with Dr. Solano. Patient will stay n.p.o. at midnight and call the clinic tomorrow morning where they will arrange a outpatient procedure so he does not have to stay in the hospital. Vital Signs Vital signs: Vital Signs Temperature 97.7 F 01/29/23 17:08 Pulse Rate 70 01/29/23 17:08 Respiratory Rate 22 H 01/29/23 17:08 Blood Pressure 144/84 H 01/29/23 17:08 Pulse Oximetry 100 01/29/23 17:08
--- NOTE | 2023-01-29 19:16 | PC.NURSE ---
This RN assumed care of this patient.
[2023-01-29 19:27] LABS: Appearance Urine Cloudy (Clear); Bacteria Urine None Seen /hpf; Bilirubin Urine Negative (Negative); Blood Urine 3+ (Negative); Color Urine Yellow (Yellow); Glucose Urine UA Negative (Negative); Ketones Urine 1+ mg/dL (Negative); Leukocyte Esterase Ur Negative LEU/UL (Negative); Nitrate Urine Negative (Negative); Non Pathogenic Casts 0-2; Protein Urine 1+ mg/dL (Negative); RBC Urine >100 /hpf (0-2); Specific Grav Ur 1.025 (1.001-1.035); Squamous Epithelial Cell Urine None seen /hpf (Few); WBC Urine 0-5 /hpf
[2023-01-29 19:47] VITALS: BP 111/84; PULSE 70; RESP 14; O2SAT 97
[2023-01-29 19:54] LABS: Add Urine Microscopic? YES
[2023-01-29 20:46] VITALS: BP 109/75; PULSE 68; RESP 17; O2SAT 98
[2023-01-29] MEDS: oxyCODONE/ACETAMINOPHEN (*CRX) 5-325 MG TABLET 1 TABLET PO (20:55)
[2023-01-29 21:05] VITALS: BP 113/81; PULSE 73; RESP 17; O2SAT 100
== END 2023-01-29 21:06 | disposition home or self-care (01) ==
PROVIDERS: Emergency Provider Emergency Medicine; PCP Family Medicine
DX: N13.2 Hydronephrosis with renal and ureteral calculous obstruction (principal); I10 Essential (primary) hypertension
CPT/HCPCS: 36415; 74176; 80053; 81001; 85025; 96361; 96374; 96375; 99284; A9270; J1885; J2270; J2405; J7030

== ENCOUNTER 2023-02-01 01:00 | Day surgery (SDC) | payer OTHER, SELFPAY ==
[2023-01-30 11:58] VITALS: BMI 26.4
--- NOTE | 2023-01-30 12:04 | PC.NURSE ---
Report to the Outpatient Waiting Room, entrance under the green pavilion located off [facility], at time 1200 on date 02/01/23. Planned Procedure Time: 1400. Time changes happen often and if your time is changed the preop area will call you the afternoon before. - You and your visitor will be asked to self-screen and do not enter if you have any COVID symptoms. - A mask is optional within the hospital at this time. Patients may have clear liquids (water, carbonated beverages, clear teas, apple juice) until 3 hours prior to surgery with a maximum of 20 ounces. - No food from midnight until time of surgery Take the following medications with a SIP of water the morning of surgery: PAIN PILL IF NEEDED DO NOT STOP ANY OF YOUR OTHER PRESCRIPTION MEDICATIONS PRIOR TO SURGERY EXCEPT THE FOLLOWING Medications to discontinue per physician: VITAMINS Date to take last dose: NO MORE UNTIL AFTER SURGERY Please no make-up, nail chinese, hairspray, perfume, deodorant, or body powder the day of surgery. No jewelry (including any body piercings) or valuables the day of surgery, leave them at home. Please take a shower or bath the night before, or the morning of, surgery with an antibacterial soap. Wear comfortable, loose fitting clothing. - Jewelry must be removed prior to entering the operating room. Rings and piercings that are not removed may be cut off. - The hospital will not accept responsibility for valuables. - Please leave all valuables, including medications, at home the day of surgery. If you are going home after surgery, a licensed public transit trolley driver must drive you home. - NO public transportation without another adult if you receive anesthesia. - We recommend that an adult stay with you for 24 hours following discharge. - We also recommend that you do not drive, make important decision, drink alcoholic beverages, or take any drugs that were not prescribed by your health care provider for at least 24 hours after your discharge time. Follow any additional instructions given to you from your surgeon. If you or anyone in your household have experienced Covid symptoms in the past week, please notify your surgeon or the nurse liaison at the phone number below for possible testing. Telephone instructions given to PT - ELISA WAY and asked if any additional questions and then verbalized understanding. Patient advised to call surgeon office or pre surgery nurse liaison [phone] if any additional questions.
[2023-02-01] VITALS (8 sets, daily range): BP systolic 113–126; BP diastolic 78–90; PULSE 52–71; RESP 12–16; TEMP 36.4–36.9; O2SAT 97–100; BMI 27.2
--- NOTE | ~2023-02-01 | XR_ITS ---
EXAMINATION: XR stent kub - surgery DATE: 02/01/2023 10:50 INDICATION: Left internal ureteral stent placement TECHNIQUE: Fluoroscopic images from a left internal ureteral stent placement are submitted for review . 18 seconds of fluoroscopy time. FINDINGS: There is a left double-J internal ureteral stent projecting in expected position, with proximal [place] loop at the level of the renal pelvis and distal loop in the pelvis within the bladder lumen. IMPRESSION: 1. Left internal ureteral stent placement. Please refer to real-time procedural findings for detail s. Reviewed, dictated and finalized at location L. IMPRESSION: 1. Left internal ureteral stent placement. Please refer to real-time procedur al findings for details.
--- NOTE | 2023-02-01 06:33 | WPDHPUPDATE1 ---
History and Physical Update Update Date/Time: 02/01/23 06:33 History and Physical has been reviewed, including an updated exam of the patient. There are NO changes in the patient's condition. Risks, benefits, and alternatives have been discussed and questions answered. Patient agrees to proceed with procedure.
[2023-02-01] MEDS: LACTATED RINGERS 1,000 ML 30 ML IV CONT (09:25)
--- NOTE | 2023-02-01 09:32 | WPDANESEPPF ---
Anes - Initial Pre Proc Eval Procedure: Operation Date: 02/01/23 11:00 Proposed Procedures p Cystoscopy, Left Ureteroscopy, Left Retrograde Pyelogram, Left Stone Extraction, Left Stent Placement, Possible Holmium Laser - Jacques Haynes MD Date/Time: 02/01/23 09:32 Surgeon: Jacques Haynes MD Pre Op Diagnosis: left ureteral stones Patient Data Age: 62 Gender: M Height: 1.85 m Weight: 90.75 kg Allergies Allergy/AdvReac Type Severity Reaction Status Date / Time ciprofloxacin Allergy Unknown Other Verified 01/30/23 11:58 hydrocodone AdvReac Intermediate Hypotension Verified 01/30/23 11:58 Home Medications Medication Instructions Recorded Confirmed Type vgvmtmsiqqvj-fgdpoguh-tvksmh tablet 1 tablet PO DAILY 12/13/20 01/30/23 History ondansetron 4 mg disintegrating 4 mg PO Q8H PRN nausea and 12/17/22 01/30/23 Rx tablet vomiting #14 tabs tamsulosin 0.4 mg capsule (Flomax) 0.4 mg PO DAILY 14 days #14 caps 12/17/22 01/30/23 Rx lisinopril 10 mg tablet See Rx Instructions .Route 01/25/23 01/30/23 Rx .COMPLEX #90 tabs oxycodone-acetaminophen 5 mg-325 1 tablet PO Q6H PRN pain #10 tabs 01/29/23 01/30/23 Rx mg tablet (Endocet) ECG: Date of Service: 02/24/22 Procedure(s): CA 12 lead EKG Accession Number(s): [id number] cc: ~ ? Measurements Intervals? [place]? Rate: ? 66 ? P:? 46 OK: ? 160? QRS:? 78 QRSD: ? 113? T:? 43 QT: ? 394? QTc:? 413? Interpretive Statements SINUS RHYTHM MODERATE INTRAVENTRICULAR CONDUCTION DELAY [110+ ms QRS DURATION] NO PREVIOUS ECG AVAILABLE FOR COMPARISON ABNORMAL EKG Electronically Signed On 02-25-2022 13:41:48 CDT by Harrison Crews M.D. Patient hx anesthesia problems: none Family hx anesthesia problems: none Results Review: All pre-operative results and documents have been reviewed as part of the pre-operative evaluation. [facility] Past Medical History Medical History Basal cell carcinoma of skin Basal cell carcinoma, face Essential (primary) hypertension Globus sensation Obesity (BMI 30.0-34.9) Surgical History Surgical History H/O left inguinal hernia repair History of right hip replacement 2015 Family History Family History Mother Family history of thyroid disease Family history of Alzheimer's disease Father , age 65 Family history of lung cancer Social History Social History (Updated 10/02/22 @ 10:35 by Cheri Rawls MA) Smoking status: Never smoker Alcohol intake: never Drinks per week: 2 Alcohol use details: wine Substance use: never Substance use type: does not use Lack of Transportation: No Lack of Food: Never True Current Housing: I Have Housing Concerned About Future Housing: No Difficulty Paying Gas/Electric Bills: No Difficulty Paying for Meds: No Currently Unemployed: No Education: Master's Degree or Higher Difficulty w/ Childcare or Family Care: No Living arrangements: with family 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
[2023-02-01] MEDS: SCOPOLAMINE 1.5 MG PATCH TRANSDERM (09:48)
[2023-02-01] MEDS: ceFAZolin 2 GM/D5W 50 ML 2 GM/50 ML BAG IVPB (10:15)
[2023-02-01] MEDS: LIDOCAINE HCL 2% GEL UROJET 10 ML PKG MUCOUS MEM (10:25)
--- NOTE | 2023-02-01 10:46 | W.PM.PROC2 ---
Procedure Note - Detailed Date of Procedure 02/01/23 Pre-op Diagnosis Left ureteral stones Post-op Diagnosis Same Procedure Performed Cystoscopy, left ureteroscopy with laser lithotripsy, stone extraction, left ureteral stent placement Surgeon Jacques Haynes MD Anesthesia General Description of Procedure patient is brought to the operative suite was prepped draped in routine sterile fashion while in dorsal lithotomy position after the uneventful induction of a general LMA anesthetic. Cystoscopy is undertaken with a 19 F rigid cystoscope. Bladder neck and urethra endoscopically normal. There was no intravesical foreign body neoplasm. He has a single orthotopic ureteral orifice with clear efflux bilaterally. 0.035 in glidewire was advanced in the left renal pelvis and the distal ureter was dilated with an 8 F 10 F dilator. I could feel the stone in the distal left ureter and see it on fluoroscopy. Ureteroscopy was undertaken with a short tapered semi-rigid ureteral scope. The stone is impacted in some edematous ureteral mucosal tissue. Using the 200 micron holmium laser fiber fractured into smaller pieces and extracted all pieces. I did place a 4.8 F variable length stent with the proximal coil in renal pelvis distal coil in the bladder. Scopes and wires removed he was taken the recovery room good condition. Drains Yes Packing No Pathology Yes Complications No immediate complications Condition Stable
== END 2023-02-01 12:35 | disposition home or self-care (01) ==
PROVIDERS: PCP Family Medicine; Visit Provider Urology
PROC: (CPT 52352; principal; 2023-02-01 11:00)
DX: N20.1 Calculus of ureter (principal); I10 Essential (primary) hypertension
CPT/HCPCS: 52356; 82365; 88300; A9270; C1769; C2617; J0690; J1100; J2405; J2704; J7120

== ENCOUNTER 2024-03-04 08:22 | Emergency (ER) | payer OTHER, SELFPAY ==
--- NOTE | 2024-03-04 08:24 | ED.URI ---
HPI - URI/Sore Throat General Chief Complaint: Upper Respiratory Infection Stated Complaint: Sore Throat Time Seen by Provider: 03/04/24 08:24 Source: patient Mode of arrival: ambulatory Limitations: no limitations History of Present Illness HPI Narrative: Patient is a 63-year-old male who presents with 2 days of sore throat and cough. Denies any fever, chills, nausea, vomiting, diarrhea. Has not taken anything for symptoms. Reports he takes care of his grandkids since not want to get them sick. Related Data Home Medications Medication Instructions Recorded Confirmed haagnposiyzr-taqagirk-uqsnno tablet 1 tablet PO DAILY 12/13/20 03/04/24 Allergies Allergy/AdvReac Type Severity Reaction Status Date / Time ciprofloxacin Allergy Unknown Other Verified 03/04/24 08:33 hydrocodone AdvReac Intermediate Hypotension Verified 03/04/24 08:33 Review of Systems Review of Systems: All systems reviewed & are unremarkable except as noted in HPI and below Constitutional: Constitutional: Denies body ache(s), Denies fever(s), Denies headache(s), Denies malaise and Denies weakness Eyes: Eyes: Denies loss of vision ENT: Denies otalgia, Denies headache(s), Denies nasal congestion, Denies sinus pain and Reports sore throat Cardiovascular: Cardiovascular: Denies chest pain, Denies irregular heart rhythm and Denies dyspnea Respiratory: Respiratory: Reports cough and Denies dyspnea Gastrointestinal: Gastrointestinal: Denies abdominal pain, Denies melena, Denies hematochezia, Denies diarrhea, Denies nausea and Denies vomiting Musculoskeletal: Musculoskeletal: Denies back pain, Denies myalgias and Denies arthralgias Integumentary/Breasts: Skin/Breast: Denies pruritus and Denies rash Neurologic: Denies headache(s), Denies loss of vision and Denies weakness Psychiatric: Psychiatric: Reports no additional psychiatric complaints PMF Past Medical History Medical History Basal cell carcinoma of skin Basal cell carcinoma, face Essential (primary) hypertension Globus sensation Obesity (BMI 30.0-34.9) Surgical History Surgical History H/O left inguinal hernia repair History of right hip replacement 2015 Family History Family History Mother Family history of thyroid disease Family history of Alzheimer's disease Father , age 65 Family history of lung cancer Social History Social History Smoking status: Never smoker Alcohol intake: never Drinks per week: 2 Alcohol use details: wine Substance use: never Substance use type: does not use Lack of Transportation: No Lack of Food: Never True Current Housing: I Have Housing Concerned About Future Housing: No Difficulty Paying Gas/Electric Bills: No Difficulty Paying for Meds: No Currently Unemployed: No Education: Master's Degree or Higher Difficulty w/ Childcare or Family Care: No Living arrangements: with family Occupation/Education: retired 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 There is no relevant family history pertinent to the presenting complaint. Exam Const: General: cooperative, healthy appearing, comfortable, no acute distress and well nourished Nutritional Appearance: well nourished Orientation/consciousness: patient oriented x3 Limitations: no limitations HENMT: Head: normal to inspection, normocephalic and atraumatic Ears: hearing grossly normal bilaterally, external ears normal, TM's normal bilaterally and
[2024-03-04 08:44] VITALS: BP 131/91; PULSE 99; RESP 20; TEMP 36.2; O2SAT 98
== END 2024-03-04 09:40 | disposition home or self-care (01) ==
PROVIDERS: Emergency Provider Nurse Practitioner Family; PCP Family Medicine
DX: J02.0 Streptococcal pharyngitis (principal); I10 Essential (primary) hypertension; E66.9 Obesity, unspecified; Z68.27 Body mass index [BMI] 27.0-27.9, adult; Z96.641 Presence of right artificial hip joint; Z85.828 Personal history of other malignant neoplasm of skin
CPT/HCPCS: 87880; 99213; G0463

== ENCOUNTER 2025-02-01 16:38 | Emergency (ER) | payer OTHER, SELFPAY ==
--- NOTE | 2025-02-01 16:42 | ED_ITS ---
HPI - Eye Problem General Chief complaint: Eye Problems Stated complaint: EYE REDNESS Source: patient Mode of arrival: ambulatory Limitations: no limitations History of Present Illness HPI Narrative: Patient is a 64 year old male who presents to the clinic with complaints of left eye redness since this morning when he woke up. He has not been taking anything over the counter. Denies any visual changes. Related Data Home Medications Medication Instructions Recorded Confirmed Last Taken Type hivccbxgccxa-[id number]-okwded tablet 1 tablet PO DAILY 12/13/20 04/07/24 01/29/23 History Allergies Allergy/AdvReac Type Severity Reaction Status Date / Time ciprofloxacin Allergy Unknown Other Verified 10/10/24 11:08 hydrocodone AdvReac Intermediate Hypotension Verified 10/10/24 11:08 Review of Systems Review of Systems: CONSTITUTIONAL: Denies body aches, fever, chills EYES: Endorses redness and pain to L eye; No FB sensation, photophobia. Denies visual changes. ENT: Denies rhinorrhea, congestion, sore throat, or otalgia. CARDIOVASCULAR: Denies chest pain, palpitations RESPIRATORY: Denies cough or dyspnea. GASTROINTESTINAL: Denies abdominal pain, nausea, vomiting, or diarrhea. SKIN: Denies rash, itching, or wounds. MUSCULOSKELETAL: Denies back pain, joint pain, or myalgia. NEUROLOGIC: Denies headache, numbness, tingling, or weakness. All systems reviewed & are unremarkable except as noted in HPI and below PMFSH Past Medical History Medical History Basal cell carcinoma of skin Basal cell carcinoma, face Obesity (BMI 30.0-34.9) Globus sensation Essential (primary) hypertension Surgical History Surgical History H/O left inguinal hernia repair History of right hip replacement 2015 Family History Family History Mother Family history of thyroid disease Family history of Alzheimer's disease Father , age 65 Family history of lung cancer Social History Social History Smoking status: Never smoker Alcohol intake: never Drinks per week: 2 Alcohol use details: wine Substance use: never Substance use type: does not use Lack of Transportation: No Lack of Food: Never True Current Housing: I Have Housing Concerned About Future Housing: No Difficulty Paying Gas/Electric Bills: No Difficulty Paying for Meds: No Currently Unemployed: No Education: Master's Degree or Higher Difficulty w/ Childcare or Family Care: No Living arrangements: with family Occupation/Education: 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 Please see nursing chart for further information. There is no relevant family history pertinent to the presenting complaint. Exam Narrative: GENERAL: Well-appearing HEAD: Normocephalic, atraumatic. EYES: Left conjunctival injection, no eye lid swelling/redness. EOMI. Lid eversion shows no FB. ENT: Mucous membranes pink and moist. No rhinorrhea. TMs normal bilaterally. Throat normal. Uvula midline. CHEST: Clear to auscultation. HEART: Regular rate and rhythm. ABDOMEN: Soft, nontender, nondistended SKIN: Warm, dry, no rash. Normal skin turgor. NEURO: No focal deficits. Alert and oriented x3 PSYCH: Normal affect. Course Course Level of Care: Express Care Visit Vital Signs Vital signs: Reviewed MDM - Eye Problem MDM Narrative Medical decision making narrative: Discussed physical exam findings. Eyedrops given for bacterial conjunctivits. Advised supportive measures and signs/symptoms to go to the ER. Pt is appropriate for outpt treatment and follow up. Differential Diagnosis Differential diagnosis: Likely conjunctivitis Critical Care Time Critical Care Time Critical Care Time: No Discharge Plan Discharge Clinical Impression: Acute bacterial conjunctivitis Patient Disposition: Home Condition: Stable Instructions: Antibiotic Form, Conjunctivitis (ED) Additional Instructions: Avoid touching or rubbing your eye. Use over the counter lubricating eye drops as needed for irritation Use a warm or cool washcloth on your eye for comfort Use eyedrops as directed - you are contagious for 24 hours after starting the antibiotic Practice good handwashing and hygiene to prevent spread of infection Do not wear the contact lenses. Use a new pair after the infection is resolved. Use new makeup, lashes etc. You may take Tylenol or ibuprofen for pain Patient Language: [place]ian Prescriptions: New polymyxin B sulf-trimethoprim 10,000 unit- 1 mg/mL drops 1 drp LEFT EYE QID 5 Days Qty: 10 0RF Rx Instructions: while awake; do not exceed 6 doses in 24 hours No Action tohbieagybpx-gwmqanng-czicbl Tablet 1 tablet PO DAILY lisinopril 10 mg tablet See Rx Instructions .ROUTE .COMPLEX Qty: 90 1RF Dose Instruction: TAKE 1 TABLET BY MOUTH DAILY Rx Instructions: TAKE 1 TABLET BY MOUTH DAILY (DME) blood-glucose meter [Accu-Chek Guide Me Glucose Mtr] Mis See Rx Instructions .Route Qty: 1 0RF Rx Instructions: As directed (DME) Accu-Chek Guide test strips Strip See Rx Instructions .Route Qty: 100 1RF Rx Instructions: Use to check blood sugars once daily (DME) lancets [Accu-Chek Softclix Lancets] [facility] See Rx Instructions .Route Qty: 100 1RF Rx Instructions: Use to check blood sugars once daily Follow-up/Referrals: Tong Ortiz MD [Primary Care Provider] - Time of Disposition: 16:47
[2025-02-01 16:45] VITALS: BP 130/80; PULSE 89; RESP 16; TEMP 36.8; O2SAT 99
== END 2025-02-01 16:58 | disposition home or self-care (01) ==
PROVIDERS: PCP Family Medicine
DX: H10.32 Unspecified acute conjunctivitis, left eye (principal); I10 Essential (primary) hypertension; E66.9 Obesity, unspecified; Z68.26 Body mass index [BMI] 26.0-26.9, adult; Z96.641 Presence of right artificial hip joint; Z85.828 Personal history of other malignant neoplasm of skin
CPT/HCPCS: 99213; G0463